=== PATIENT | female | born 1990 | race Hispanic/Latino ===

== ENCOUNTER 2016-11-30 09:06 | Emergency (ER) | payer OTHER ==
[~2016-11-30] VITALS: Ht 167.6 cm; Wt 74.6 kg
[~2016-11-30 09:06] MED LIST: FLEXERIL10 MG PO; MOTRIN400 MG PO; MOTRIN600 MG PO; TYLENOL REGULA325 MG PO; birth control pill
[2016-11-30 09:51] LABS: HEMATOCRIT 41.1 % (36.0-46.0); MCH 30.3 PG (29.0-34.0); MCHC 32.6 G/DL (30.0-36.0); MEAN PLAT.VOLUME 9.7 uM^3 (9.5-12.4); PLATELET COUNT 243 K/uL (156-360); RBC DIS.WIDTH-CV 13.1 % (11.8-14.6); RBC DIS.WIDTH-SD 44.5 % (39-53); RED BLOOD COUNT 4.42 M/uL (3.80-5.20); WHITE BLOOD COUNT 10.7 K/uL (4.1-10.2)
[2016-11-30 10:01] LABS: CHLORIDE 108 mEq/L (99-109); POTASSIUM 3.7 mEq/L (3.7-5.4); SODIUM 139 mEq/L (136-147)
[2016-11-30 10:02] LABS: GLUCOSE 93 mg/dL (70-99)
[2016-11-30 10:03] LABS: ADD MIUA? YES; BILIRUBIN NEGATIVE; BLOOD LARGE; COLOR YELLOW ((YELLOW)); GLUCOSE (STRIP) NEGATIVE; KETONES NEGATIVE; LEUKOCYTES LARGE; NITRITE NEGATIVE; PROTEIN (STRIP) 100; SPECIFIC GRAVITY 1.017 (1.000-1.030); UROBILINOGEN 0.2 MG/DL (0.2-1.0)
[2016-11-30 10:04] LABS: ANION GAP 12 MEQ/L (2-14)
[2016-11-30 10:06] LABS: GFR ESTIMATE (CALCULATED) > 59 mL/min/
[2016-11-30 10:07] LABS: UREA NITROGEN (BUN) 13 mg/dL (9-23)
[2016-11-30] MEDS ORDERED: MACROBID100 MG PO (10:19)
[2016-11-30] MEDS ORDERED: PYRIDIUM200 MG PO (10:19)
[2016-11-30] MEDS ORDERED: MOTRIN600 MG PO (10:19)
[2016-11-30 10:20] LABS: BACTERIA RARE /HPF; CALCIUM OXALATE CRYSTALS 1+ /HPF; EPITHELIAL CELLS RARE /HPF; HYALINE CASTS 0-5 /LPF; MUCUS TRACE /LPF; RED BLOOD CELLS 20-30 /HPF (0-5); UCUL ADDED? YES; WHITE BLOOD CELLS TNTC /HPF (0-5)
[2016-11-30 10:20] LABS: QUANTITATIVE HCG < 4.0 MIU/ML
[2016-11-30 10:35] VITALS: BP 133/88
== END 2016-11-30 10:42 | disposition home or self-care (01) ==
LOC: EME 09:06
DX: N39.0 Urinary tract infection, site not specified (principal); Z87.442 Personal history of urinary calculi; F17.200 Nicotine dependence, unspecified, uncomplicated
CPT/HCPCS: 80048; 81003; 84702; 85027; 87077; 87086; 87186; 99281; 99283